=== PATIENT | male | born 1995 | race Caucasian/White ===

== ENCOUNTER 2019-07-10 05:14 | Day surgery (SDC) | payer OTHER ==
[2019-07-10] MEDS ORDERED: Fentanyl 100 MCG/2 ML VIAL ONE ×2 (05:39→11:18)
--- NOTE | 2019-07-10 10:44 | HP ---
DATE OF CONSULTATION: 07/10/2019 REQUESTING PHYSICIAN: Saloni Brandon MD. REASON FOR CONSULTATION: Ureteral calculus. HISTORY OF PRESENT ILLNESS: Mr. Lopez is a 23-year-old male with past urologic history significant for passing multiple stones in the past. Yesterday, he developed acute onset of right-sided flank pain associated with intractable nausea and vomiting. He presented to his local emergency department in [place], [place], at which point a CT scan was performed and he was diagnosed with a 1.5 cm obstructing right mid ureteral calculus with right hydroureteronephrosis. The patient had been given multiple doses of various IV analgesics and his pain was not well controlled and he was therefore transferred to [facility] in [place], [place], for urologic evaluation. The patient denies any fever. No gross hematuria. He has never required surgery for stones in the past, has never seen a urologist, although he has been referred to urologist in the past. He has no other complaints at this time. REVIEW OF SYSTEMS: Full 12-point review of systems was performed, is negative other than that mentioned in HPI. PAST MEDICAL HISTORY: Nephrolithiasis, bipolar disorder. PAST SURGICAL HISTORY: Adenoidectomy, tonsillectomy. FAMILY HISTORY: Noncontributory. SOCIAL HISTORY: No alcohol, tobacco, or illicit drugs. He lives at home alone. ALLERGIES: VICODIN CAUSES NAUSEA. MEDICATIONS: Current medications; 1. Lamotrigine. 2. Sertraline. 3. Risperidone. PHYSICAL EXAMINATION: VITAL SIGNS: Blood pressure 133/94, pulse 56, respirations 18, temperature 98.2, oxygen saturation 98% on room air. GENERAL: He is awake and alert, in no apparent distress. HEENT: Normocephalic and atraumatic. NECK: Supple. No masses or lymphadenopathy. CARDIOVASCULAR: Regular rate and rhythm. PULMONARY: Breathing unlabored. ABDOMEN: Soft, nontender/nondistended. No masses or organomegaly. No suprapubic tenderness to palpation. No CVA tenderness. EXTREMITIES: Warm, well perfused. No edema. NEUROLOGIC: No focal deficits. LABORATORY DATA: Urinalysis demonstrates red blood cells and white blood cells, but no but nitrite negative. All labs were reviewed from the outside facility. He has normal white blood cell count and normal renal. RADIOLOGY DATA: CT of the abdomen and pelvis was performed, which demonstrates bilateral very small nonobstructing renal calculi and a large 1.5 cm mid ureteral calculus on the right side with hydroureteronephrosis. ASSESSMENT: A 23-year-old male with obstructing 1.5 cm right mid ureteral calculus, hydronephrosis, intractable pain and nausea. PLAN: I reviewed the natural history and clinical implications of ureterolithiasis with the patient in detail. I discussed his minimal chance of spontaneous passage of a stone of this size. The patient's pain is poorly controlled. I discussed options with the patient for urgent decompression for pain control. After indications/risks/benefits/alternatives/possible outcomes were discussed with the patient in detail, he elects to proceed with right ureteral stent placement and all indicated procedures. The patient will require outpatient staged procedure for definitive management of this stone either by shockwave lithotripsy or ureteroscopy with laser lithotripsy. This was all explained to the patient. He elects to proceed. This will be performed later today. Job ID: [id number]
[2019-07-10] MEDS ORDERED: Iothalamate Meglumine 60% 50 ML VIAL FS ONE (11:26)
[2019-07-10] MEDS ORDERED: PROPOFOL 200 MG/20 ML VIAL ONE (12:15)
[2019-07-10] MEDS ORDERED: Lidocaine 1% PF 5 ML VIAL ONE (12:15)
[2019-07-10] MEDS ORDERED: Ondansetron PF 4 MG/2 ML Vial ONE (12:15)
--- NOTE | 2019-07-10 12:15 | RAD ---
XR IVP Retrograde History: Ureteral stone Comparison: None. Findings: Single spot image demonstrates a satisfactory double-J ureteral stent with distention of th e renal collecting system. The bladder component of the stent is not seen on this image. Impression: Fluoroscopy for procedural use.
--- NOTE | 2019-07-10 13:36 | OP ---
DATE OF PROCEDURE: 07/10/2019 [employer]IL BIOLOGY TEACHER: None. PREPROCEDURE DIAGNOSES: 1. Right ureteral calculus. 2. Right hydronephrosis. POSTPROCEDURE DIAGNOSES: 1. Right ureteral calculus. 2. Right hydronephrosis. PROCEDURES PERFORMED: Right ureteral stent placement. ANESTHESIA: LMA anesthesia. COMPLICATIONS: None. FLUIDS: See Anesthesia record. ESTIMATED BLOOD LOSS: Minimal. SPECIMENS: None. POSTPROCEDURE STATUS: Satisfactory. INDICATIONS FOR PROCEDURE: Mr. Lopez is a 23-year-old male, who has a history of urolithiasis in the past. He has never seen a urologist before. He presented to his local emergency department in [place], [place] with acute onset of right-sided flank pain associated with nausea and vomiting. His symptoms were poorly controlled and he was transferred to [facility] in [place] for urologic care. After indications/risks/benefits/alternatives/possible outcomes were discussed with the patient in detail, he elects to proceed with right ureteral stent placement and all indicated procedures. DESCRIPTION OF PROCEDURE: The patient was taken the operating room and after successful induction of LMA anesthesia, he was placed in dorsal lithotomy position and his genitalia were prepped and draped in usual sterile fashion. A time-out was performed following which, a 22-Fijian rigid cystoscope was inserted into the patient's urethra and advanced into the bladder. Prior to this, we did dilate the fossa navicularis with Marty sounds from 18-Fijian up to 24-Fijian, as his meatus was rather narrow. Complete cystoscopy was performed and was unremarkable. The right ureteral orifice was identified. It was cannulated with a zip wire, which was advanced up beyond the stone, which could be seen within the mid ureter and advanced into the renal pelvis. A 5-Fijian open-ended ureteral catheter was placed over this and the wire was removed. A retrograde pyelogram demonstrated no other filling defects other than the stone and it demonstrated moderate hydroureteronephrosis. The wire was replaced and the open-ended catheter was removed. A 6-Fijian x 28 cm double-J ureteral stent was placed over the wire and upon wire removal, a good curl was achieved proximally within the right renal pelvis and distally within the bladder. The patient's bladder was drained. He tolerated the procedure well, was awoken from anesthesia and transferred to the PACU in satisfactory condition. PLAN: The patient will be discharged home when he meets PACU criteria. We will continue antibiotics for a few days and some pain medicine. The patient then will need to follow up as an outpatient for scheduling of definitive management of this right ureteral stone. Job ID: [id number]
== END 2019-07-10 14:30 | disposition home or self-care (01) ==
LOC: ERS 05:14 → SDC/OP 09:40
PROVIDERS: ATTEND Urology
PROC: BT1D1ZZ Fluoroscopy of Right Kidney, Ureter and Bladder using Low Osmolar Contrast (ICD-10-PCS; principal; 2019-07-10)
PROC: 0T768DZ Dilation of Right Ureter with Intraluminal Device, Via Natural or Artificial Opening Endoscopic (ICD-10-PCS; principal; 2019-07-10)
DX: N13.2 Hydronephrosis with renal and ureteral calculous obstruction (principal); F31.9 Bipolar disorder, unspecified; F41.9 Anxiety disorder, unspecified; F42.9 Obsessive-compulsive disorder, unspecified; Z79.899 Other long term (current) drug therapy
CPT/HCPCS: 74420; C1758; C1769; J3010